=== PATIENT | female | born 1990 | race Caucasian/White ===

== ENCOUNTER 2024-07-26 15:03 | Outpatient (AMB) | payer BC, SELFPAY ==
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
[2024-07-26 15:49] VITALS: BP 116/78; PULSE 98; RESP 16; TEMP 36.8; O2SAT 97; BMI 49.9
--- OUTSIDE RECORDS SUMMARY | 2024-07-26 19:06 | XMS_ITS | Encounter Summary ---
Author Organization [facility] Address [address] [place] [address] Care Team Providers Care Heavy Machinery Assembler Name Role Phone Deb Patterson Primary Care Provider Encounter Details Date Type Department Care Team (Late st Contact Info) Description 06/17/2023 Telephone [facility] Patient Access [facility] [address] [place] [id number] Telephone Intake, Staff Social History Tobacco Use Types Packs/Day Years Used Date Smoking Tobacco: Former Cigarettes Smokeless Tobacco: Never Alcohol Use Standard Drinks/Week Comments Yes 0 (1 standard drink = 0.6 oz pur e alcohol) rare Comments Unknown Sex and Gender Information Value Date Recorded Sex Assigned at Female 12/27/2022 2:12 PM EDT Legal Sex Female 4:10 PM EDT Gender Identity Female 12/27/2022 2:12 PM EDT Sexual Orientation Lesbian or Capps 12/27/2022 2: 12 PM EDT documented as of this encounter Miscellaneous Notes * Telephone Encounter - Hoang Lucas - 06/17/2023 1:40 PM EST PT of Dr Ashley vegas from Dr Clemencia Sifuentes's office, the PT's Floor And Wall Applier Liquid. Dr Clemencia Sifuentes wanted to leave her number for Dr Ramirez. Clemencia Sifuentse would like to discuss the patient. Person cell phone number [phone] Thank you -Pac documented in this encounter Plan of Treatment Upcoming Encounters Date Type Department Care Team (Late st Contact Info) Description 08/09/2024 4:00 PM EDT Follow-Up [facility] Rheumatology Clinic [address] [place] [address] High Lead Yarder: Tru Maloney MD [address] [place] [address] 08/10/2024 2:15 PM EDT Infusion [facility] Infusion Clinic [address] [place] [address] Tru Ramirez MD [address] [place] [address] 09/07/2024 2:30 PM EDT Infusion [facility] Infusion [address] [address] Tru Ramirez MD [address] [place] [address] 11/15/2024 2:20 PM EDT Follow-Up [facility] Rheumatology Clinic [address] [place] [address] High Lead Yarder: Tru Maloney MD [address] [place] [address] documented as of this encounter Visit Diagnoses Not on filedocumented in this encounter Care Teams Heavy Machinery Assembler Relationship Specialty Start Date End Date Deb Patterson [facility] [place] [address] PCP - General Family Medicine 10/01/22 documented as of this encounter
--- OUTSIDE RECORDS SUMMARY | 2024-07-26 19:06 | XMS_ITS | Encounter Summary ---
Author Organization [facility] Address [address] [place] [address] Care Team Providers Care Self Pay Collector Name Role Phone Deb Patterson Primary Care Provider [phone] Encounter Details Date Type Department Care Team (Late st Contact Info) Description 06/15/2024 Orders Only [facility] [address] [place] [address] Yessenia Jaquez, PhilomenaD Social History Tobacco Use Types Packs/Day Years Used Date Smoking Tobacco: Former Cigarettes Passive Smoke Exposure: Past Smokeless Tobacco: Never Alcohol Use Standard Drinks/Week Comments Not Currently 0 (1 standard drink = 0.6 oz pur e alcohol) rare Comments Unknown Sex and Gender Information Value Date Recorded Sex Assigned at Female 12/27/2022 2:12 PM EDT Legal Sex Female 4:10 PM EDT Gender Identity Female 12/27/2022 2:12 PM EDT Sexual Orientation Lesbian or Capps 12/27/2022 2: 12 PM EDT documented as of this encounter Plan of Treatment Upcoming Encounters Date Type Department Care Team (Late st Contact Info) Description 08/09/2024 4:00 PM EDT Follow-Up [facility] Rheumatology Clinic [address] [place] [phone] Brush Maker Machine: Tru Maloney MD [address] [place] [phone] 08/10/2024 2:15 PM EDT Infusion [facility] Infusion Clinic [address] [place] [address] Tru Ramirez MD [address] [place] [address] 09/07/2024 2:30 PM EDT Infusion [facility] Infusion Clinic [address] [place] [address] Tru Ramirez MD [address] [place] [address] 11/15/2024 2:20 PM EDT Follow-Up [facility] Rheumatology Clinic [address] [place] [phone] Brush Maker Machine: Tru Maloney MD [address] [place] [address] documented as of this encounter Visit Diagnoses Not on filedocumented in this encounter Care Teams Self Pay Collector Relationship Specialty Start Date End Date Deb Patterson [address] [place] [address] PCP - General Family Medicine 10/01/22 documented as of this encounter
--- OUTSIDE RECORDS SUMMARY | 2024-07-26 19:06 | XMS_ITS | Encounter Summary ---
Author Organization [facility] Address [address] [place] [address] Care Team Providers Care Black And White Printer Operator Name Role Phone Deb Patterson Primary Care Provider [phone] Reason for Visit * Episode Based Medications (Routine) - Authorized Specialty Diagnoses / Procedures Referred By Billie t Referred To Contact Diagnoses Iridocyclitis Psoriasis Psoriatic arthritis (HCC) Tru Ramirez MD [address] [place] [address] Phone: tel: fax: [facility] Infusion [facility] [address] [place] [address] Phone: tel: Referral ID Status Reason Start Date Expiration Date V isits Requested Visits Authorized [id number] Authorized 12/16/2023 01/02/2025 6 6 Encounter Details Date Type Department Care Team (Late st Contact Info) Description 07/13/2024 2:15 PM EST Infusion [facility] Infusion [facility] [address] [place] [address] Tru Ramirez MD [address] [place], [place] [id number] Iman Duran RN Psoriatic arthritis (HCC) (Primary Dx); Iridocyclitis; Psoriasis Social History Tobacco Use Types Packs/Day Years [...] PM EDT documented as of this encounter Last Filed Vital Signs Vital Sign Reading Time Taken Comments Blood Pressure 131/84 07/13/2024 2:20 PM EST Pulse 74 07/13/2024 2:20 PM EST Temperature 36.8 ??C (98.2 ??F) 07/13/2024 2:20 PM ES T Respiratory Rate 20 07/13/2024 2:20 PM EST Oxygen Saturation 98% 07/13/2024 2:20 PM EST Inhaled Oxygen Concentration - - Weight 138.8 kg (306 lb) 07/13/2024 2:20 PM EST Height - - Body Mass Index 49.39 05/11/2024 4:14 PM EST documented in this encounter Nursing Notes * Iman Duran RN - 07/13/2024 2:15 PM EST Patient ambulatory to infusion room for Rapid Infliximab infusion. Patient denies any fevers, infections, or antibiotic use in the last 7 days. PIV placed in Righthand at patient request. Patient denies pain or discomfort with flush. Premedicated as ordered. Infliximab infused per therapy plan. Pt tolerated infusion well. PIV flushed and removed intact. AVS declined patient states she uses my chart. Patient discharged ambulatory in stable condition. documented in this encounter Plan of Treatment Upcoming Encounters Date Type Department Care Team (Late st Contact Info) Description 08/09/2024 4:00 PM EDT Follow-Up [facility] Rheumatology Clinic [address] [place] [address] Stationary Engineer Apprentice: Tru Maloney MD [address] [place] [address] 08/10/2024 2:15 PM EDT Infusion [facility] Infusion Clinic [address] [place] [address] Tru Ramirez MD [address] [place] [address] 09/07/2024 2:30 PM EDT Infusion [facility] Infusion Clinic [address] [place] [address] Tru Ramirez MD [address] [place] [address] 11/15/2024 2:20 PM EDT Follow-Up [facility] Rheumatology Clinic [address] [place] [address] Stationary Engineer Apprentice: Tru Maloney MD [address] [place] [address] documented as of this encounter Visit Diagnoses Diagnosis Psoriatic arthritis (HCC)- Primary Psoriatic arthropathy Iridocyclitis Unspecified iridocyclitis Psoriasis Other psoriasis documented in this encounter Administered Medications Inactive Administered Medications - up to 3 most recent administrations Medication Order MAR Action Action Date Dose Rate Site acetaminophen (TYLENOL) tablet 650 mg 650 mg, oral, Once, On Thu07/13/24 at 1430, 1 dose, Administer 30 minutes prior to inFLIXimab. Week 6Indications:Iridocyclitis, Psoriasis,Psoriatic arthritis (HCC) Given 07/13/2024 3:12 PM EST 650 mg diphenhydrAMINE (BENADRYL) injection 25 mg 25 mg, intravenous, Once, On Thu07/13/24 at 1430, 1 dose, Administer 30 minutes prior to inFLIXimab infusion Week 6Indications:Iridocyclitis, Psoriasis,Psoriatic arthritis (HCC) Given 07/13/2024 3:17 PM EST 25 mg hydrocortisone sodium succinate (Solu-CORTEF) injection 200 mg 200 mg, intravenous, Once, On Thu07/13/24 at 1430, 1 dose, Administer 30 minutes prior to inFLIXimabIndications:Irido cyclitis,Psoriasis,Psoriati c arthritis (HCC) Given 07/13/2024 3:14 PM EST 200 mg inFLIXimab-dyyb (INFLECTRA) 1,390 mg in 0.9% NaCl 500 mL IVPB (No Charge) 1,390 mg (rounded from 1,388 mg = 10 mg/kg ? 138.8 kg), intravenous, Once, On Thu07/13/24 at 1515, 1 dose, If inFLIXimab (or biosimilar) infusion reaction occurs, please stop infusion, administer anaphylaxis medications per orders if needed and contact ordering provider for administration instructions. See InFLIXimab admin chart. Loading doses (weeks 0, 2, and 6) and 1st maintenance dose to be admin at standard rate. If first 4 doses tolerated, future doses admin at rapid rate. If greater than 6 months have elapsed between doses OR patient intolerant of rapid rate OR patient needs to be loaded again please refer to admin chart for guidance. Use 1.2 micron or smaller filter.Indications:Iridocyc litis,Psoriasis,Psoriatic arthritis (HCC) New Bag/Syringe 07/13/2024 3:31 PM EST 1,390 mg 500 mL/hr sodium chloride 0.9% (NS) premix infusion 250 mL, intravenous, at 20 mL/hr, Once, On Thu07/13/24 at 1430, 1 doseIndications:Iridocyclit is,Psoriasis,Psoriatic arthritis (HCC) New Bag/Syringe 07/13/2024 3:15 PM EST 250 mL 20 mL/hr documented in this encounter Care Teams Black And White Printer Operator Relationship Specialty Start Date End Date Deb Patterson [address] [place] [address] PCP - General Family Medicine 10/01/22 documented as of this encounter
--- OUTSIDE RECORDS SUMMARY | 2024-07-26 19:06 | XMS_ITS | Referral Summary ---
Author Organization [facility] Address [address] [place] [address] Care Team Providers Care Special Needs Tutor Name Role Phone Deb Patterson Primary Care Provider [phone] Encounters Date Type Department Care Team Description 07/13/2024 2:15 PM EST Infusion [facility] [address] [place] [id number] Tru Ramirez MD Overstreet, Belinda, RN Psoriatic arthritis (HCC) (Primary Dx); Iridocyclitis; Psoriasis 06/15/2024 Orders Only [facility] [address] [place] [phone] Yessenia Jaquez, PhilomenaD 06/15/2024 3:15 PM EST Infusion [facility] [address] [place] [address] [phone] Tru Ramirez MD Hallihan, Jillian, RN Psoriatic arthritis (HCC) (Primary Dx); Iridocyclitis; Psoriasis 05/17/2024 Orders Only [facility] [address] [place] [phone] [employer]ental [employer] Manager: Tru Maloney MD Psoriatic arthritis (HCC) 05/12/2024 myChart Message [facility] [address] [place] [phone] Car Rental Agency Manager: Tru Maloney MD Your lab test results 05/11/2024 Refill [facility] [address] [place] [address] [place] [phone] [employer] Rental Agency Manager: Tru Maloney MD Psoriatic arthritis (HCC) 05/11/2024 4:20 PM EST Follow-Up [facility] [address] [place] [address] Car Rental Agency Manager: Tru Maloney MD Psoriatic arthritis (HCC) (Primary Dx); Psoriasis; High risk medication use 05/06/2024 8:00 AM EST Infusion [facility] [address] [place] [phone] Tru Ramirez MD Overstreet, Belinda, RN Psoriatic arthritis (HCC) (Primary Dx); Iridocyclitis; Psoriasis from Last 3 Months Allergies Active Allergy Reactions Criticality Noted Date Comments Escitalopram Unknown 07/24/2020 Levofloxacin Hallucinations,Unkno wn Medium 08/09/2016 hallucinations Hallucinations Sulfa (Sulfonamide Antibiotics) Hives 08/09/2016 Medications albuterol (PROAIR HFA,VENTOLIN HFA) 90 mcg inhaler Inhale 2 puffs by mouth every 4 hours as needed for wheezing. Active cetirizine (ZyrTEC) 10 mg tablet Take 10 mg by mouth once a day. Active meclizine (ANTIVERT) 25 mg tablet Take 25 mg by mouth 3 times a day as needed for dizziness. Active triamcinolone acetonide (KENALOG) 0.1% cream Apply 1 application. topically to the affected area 2 times a day. 3 Active triamcinolone acetonide (KENALOG) 0.1% ointment Apply 1 application. topically to the affected area 2 times a day. 3 Active fluticasone propion-salmet Naima (Wixela Inhub) 100-50 mcg inhaler Inhale 1 puff by mouth 2 times daily. 3 Active BD Insulin Syringe Ultra-Fine 1 mL 31 gauge x 5/16 1 EACH BY MISCELLANEOUS ROUTE ONE TIME PER WEEK 4 Active cyclobenzaprin e (FLEXERIL) 10 mg tablet Take 10 mg by mouth 3 times a day. 4 Active inFLIXimab-dyy b (Inflectra) 100 mg injectionIndic ations:Psoriat ic arthritis (HCC) Infuse 135 mL (1350 mg total) intravenously every 30 days for 5 doses. 140 mL 4 07/12/2024 9:10 AM EST 4 08/16/19 25 Active leucovorin 10 mg tabletIndicati ons:Psoriatic arthritis (HCC) Take 1 tablet (10 mg total) by mouth per week. Take with a full glass of water about 12 hours after methotrexate dose 13 tablet 3 4 05/11/20 25 Active syringe with needle 1 mL 25 gauge x 5/8 syringeIndicat ions:Psoriatic arthritis (HCC) For use with methotrexate injection 13 each 3 4 Active folic acid (FOLVITE) 1 mg tabletIndicati ons:Psoriatic arthritis (HCC) Take 1 tablet (1 mg total) by mouth once a day. 90 tablet 3 4 05/11/20 25 Active methotrexate 25 mg/mL injectionIndic ations:Psoriat ic arthritis (HCC) Inject 1 mL (25 mg total) under the skin per week. 26 mL 4 11/16/19 25 Active Active Problems Problem Noted Date Diagnosed Date Iridocyclitis 09/02/2023 Microcytic anemia 03/11/2023 Assessment & Plan (06/03/2023 4:42 PM EST): Ms. Frederick has a microcytic anemia. Laboratory studies will be performed today to assess her serum iron, TIBC, and serum ferritin. Assessment & Plan (03/11/2023 5:59 PM EDT): Ms. Frederick has a microcytic anemia. Laboratory studies will be performed today to assess her serum iron, TIBC, and serum ferritin. High risk medication use 03/11/2023 Anxiety 12/30/2022 Asthma 12/30/2022 Class 3 severe obesity due t o excess calories without serious comorbidity with body mass index (BMI) of 40.0 to 44.9 in adult 12/30/2022 Abnormal Pap smear of cervix 10/10/2021 Overview (12/30/2022): 09/2021 Pap ASC-H Needs colpo 11/2021 Colpo Bx: neg / ECC: neg Co testing one year Arachnoid cyst of posterior cranial fossa 2021 Overview (12/30/2022): MRI brain on 08/27/2021: a stable posterior fossa arachnoid cyst measuring 3 x 1.0 cm, compared to 2014. Depression 08/24/2019 Psoriatic arthritis 11/26/2016 Overview (12/30/2022): [facility] Rheumatology: 10.02.19- She is on Cosentyx 300 mg every 4 weeks with overall improvement. Her symptoms have not completely resolved. She endorses pain in her hands and lower back. On exam she has tenderness of the left first second and third MCPs with slight swelling. Her skin has improved except for psoriatic lesions under her breasts. She felt better on Humira but it caused a skin reaction. Could consider switching to Taltz, Tremfya, or Enbrel. For now she would like to continue with Cosentyx. Continue Cosentyx 300 mg every 4 weeks. She may take ibuprofen as needed. She will let me know if she has worsening symptoms. RTC in three months. Assessment & Plan (05/11/2024 4:44 PM EST): Ms. Frederick has psoriasis, psoriatic arthritis, and uveitis. Her psoriasis and psoriatic arthritis remained very active despite adalimumab 40 mg taken subcutaneously every other week. She previously responded inadequately to adalimumab, etanercept, certolizumab pegol, apremilast, secukinumab, and ustekinumab. Her psoriasis and joint inflammation resolved on upadacitinib 15 mg taken by mouth daily since mid December 2022. However, after tapering off of prednisone, she experienced swelling and tenderness of both knees and ankles and swelling of both wrists. On infliximab 10 mg/kg intravenously every 4 weeks, her skin and joint inflammation and iridocyclitis are controlled. I suggested that she continue receiving infliximab 10 mg/kg intravenously every 4 weeks and that she resume taking methotrexate 25 mg subcutaneously weekly, folic acid 1 mg by mouth daily, and leucovorin 10 mg by mouth weekly about 12 hours after her methotrexate dose. She will continue taking her other medications at their present doses. Laboratory studies will be performed today and in 3 months and 6 months to monitor her complete blood count, WBC differential count, serum creatinine, liver function studies, ESR, and CRP. Ms. Frederick will return to see me in about 3 months so that I may assess her response to this change in treatment, review the results of laboratory testing with her, and make any necessary changes in therapy. She will return sooner, if the need arises. Assessment & Plan (12/16/2023 4:33 PM EDT): Ms. Frederick has psoriasis, psoriatic arthritis, and uveitis. Her psoriasis and psoriatic arthritis remained very active despite adalimumab 40 mg taken subcutaneously every other week. She previously responded inadequately to adalimumab, etanercept, certolizumab pegol, apremilast, secukinumab, and ustekinumab. Her psoriasis and joint inflammation resolved on upadacitinib 15 mg taken by mouth daily since mid December 2022. However, after tapering off of prednisone, she experienced swelling and tenderness of both knees and ankles and swelling of both wrists. On upadacitinib 30 mg taken by mouth daily, methotrexate 25 mg taken subcutaneously weekly, and prednisone 40 mg taken by mouth daily, her skin and joint inflammation are well-controlled. However, she continues to have significant activity of her iridocyclitis. I suggested that she continue taking methotrexate 25 mg subcutaneously weekly and prednisone 40 mg by mouth daily. I have ordered for her to receive infliximab 10 mg/kg intravenously at weeks 0, 2, and 6 and then every 4 weeks thereafter. She will continue taking upadacitinib 30 mg by mouth daily until 5 days before her first infliximab infusion and then she will stop taking upadacitinib. She will continue taking leucovorin 10 mg by mouth weekly about 12 hours after methotrexate dose, folic acid 1 mg by mouth daily, and her other medications at the present doses. I informed her that infliximab, like other TNF inhibitors, may increase the severity of bacterial infections, increase her susceptibility to opportunistic infections, such as reactivation tuberculosis, increase the risk of nonmelanoma skin cancer, have psoriasis as a potential complication, rarely cause congestive heart failure, autoimmune reactions such as drug-induced lupus, low blood counts, and infusion reactions. She understands and accepts these potential risks, given the potential benefit of infliximab therapy. Laboratory studies will be performed today and in 3 months and 6 months to monitor her complete blood count, WBC differential count, serum creatinine, liver function studies, and serum lipid studies. She had hepatitis B serologic testing and QuantiFERON-TB gold testing performed in December 2022. She will have PA and lateral chest radiographs performed today in anticipation of beginning infliximab therapy. Ms. Frederick will return to see me in about 3 months so that I may assess her response to this change in treatment, review the results of laboratory and radiographic testing with her, and make any necessary changes in therapy. She will return sooner, if the need arises. Assessment & Plan (09/04/2023 11:24 AM EDT): Ms. Frederick has psoriasis, psoriatic arthritis, and uveitis. Her psoriasis and psoriatic arthritis remained very active despite adalimumab 40 mg taken subcutaneously every other week. She previously responded inadequately to adalimumab, etanercept, certolizumab pegol, apremilast, secukinumab, and ustekinumab. Her psoriasis and joint inflammation resolved on upadacitinib 15 mg taken in by mouth daily since mid December 2022. However, after tapering off of prednisone, she experiences swelling and tenderness of both knees and ankles and swelling of both wrists. She will increase her methotrexate dose from 17.5 mg to 22.5 mg taken subcutaneously weekly and she will continue taking upadacitinib 15 mg by mouth daily, leucovorin 10 mg by mouth weekly about 12 hours after methotrexate dose, folic acid 1 mg by mouth daily, and her other medications at the present doses. Laboratory studies will be performed today and in 3 months and 6 months to monitor her complete blood count, WBC differential count, serum creatinine, liver function studies, and serum lipid studies. Ms. Frederick will return to see me in about 3 months so that I may assess her response to this change in treatment, review the results of laboratory testing with her, and make any necessary changes in therapy. She will return sooner, if the need arises. Assessment & Plan (06/03/2023 4:41 PM EST): Ms. Frederick has psoriasis, psoriatic arthritis, and uveitis. Her psoriasis and psoriatic arthritis remained very active despite adalimumab 40 mg taken subcutaneously every other week. She previously responded inadequately to adalimumab, etanercept, certolizumab pegol, apremilast, secukinumab, and ustekinumab. Her psoriasis and joint inflammation have resolved on upadacitinib 15 mg taken in by mouth daily since and mid December 2022. She will continue taking upadacitinib 15 mg by mouth daily and her other medications at the present doses. Laboratory studies will be performed today and in 3 months and 6 months to monitor her complete blood count, WBC differential count, serum creatinine, liver function studies, and serum lipid studies. Ms. Frederick will return to see me in about 3 months so that I may assess her response to continued treatment, review the results of laboratory testing with her, and make any necessary changes in therapy. She will return sooner, if the need arises. Assessment & Plan (03/11/2023 5:58 PM EDT): Ms. Frederick has psoriasis, psoriatic arthritis, and uveitis. Her psoriasis and psoriatic arthritis remained very active despite adalimumab 40 mg taken subcutaneously every other week. She previously has responded inadequately to adalimumab, etanercept, certolizumab pegol, apremilast, secukinumab, and ustekinumab. Her psoriasis and joint inflammation have improved since she began taking upadacitinib 15 mg by mouth daily in December 2022. She will continue taking upadacitinib 15 mg by mouth daily, aspirin 500 mg by mouth 3 times daily, and her other medications at the present doses. Laboratory studies will be performed today and in 3 months and 6 months to monitor her complete blood count, WBC differential count, serum creatinine, liver function studies, and serum lipid studies. Ms. Frederick will return to see me in about 3 months so that I may assess her response to continued treatment, review the results of laboratory testing with her, and make any necessary changes in therapy. She will return sooner, if the need arises. Assessment & Plan (12/30/2022 3:52 PM EDT): Ms. Frederick has psoriasis, psoriatic arthritis, and uveitis. Her psoriasis and psoriatic arthritis remain very active despite adalimumab 40 mg taken subcutaneously every other week. She previously has responded inadequately to adalimumab, etanercept, certolizumab pegol, apremilast, secukinumab, and ustekinumab. She has not been treated with a CLAUDIO inhibitor. This different mechanism of action might lead to better control of her joint inflammation and possibly her psoriasis. If ineffective, consideration could be given to a trial of deucravacitinib, which is a TYK2 inhibitor that is FDA-approved for treatment of psoriasis but not yet approved in psoriatic arthritis. I suggested that she stop taking adalimumab and instead begin taking upadacitinib 15 mg by mouth daily. I told her that the FDA has issued a box warning for all CLAUDIO inhibitors indicating a possible increased risk of major adverse cardiovascular events and malignancies. However, this is based upon the results of a clinical trial that compared tofacitinib to adalimumab or etanercept in rheumatoid arthritis patients age 50 or older with at least 1 cardiovascular risk factor. The results of this clinical trial are not necessarily extrapolatable to individuals younger than age 50 without cardiovascular risk factors and without rheumatoid arthritis. I told her that upadacitinib is a more selective JAK1 inhibitor than tofacitinib. Potential risks include, but are not limited to, low blood counts, abnormal liver function, elevated serum lipids, increased risk of infection, and increased risk of herpes zoster. The potential benefit might be better control of her joint and possibly skin disease. We will seek prior authorization for upadacitinib 15 mg taken by mouth daily from her insurance provider. Once she receives authorization for this medication, she may begin taking upadacitinib immediately after stopping adalimumab. Laboratory studies should be monitored no less infrequently than every 3 months while on abatacept and to monitor her complete blood count, WBC differential count, serum creatinine, liver function studies, and serum lipid studies. Laboratory studies will be performed today to assess her complete blood count, white blood cell differential count, serum electrolytes, random blood glucose, BUN, serum creatinine, serum calcium, liver function studies, serum lipid studies, ESR, CRP, circulating antinuclear antibodies, circulating rheumatoid factor, circulating IgG anti-CCP antibodies, hepatitis B surface antigen, anti-hepatitis B surface antibodies, anti-hepatitis B core antibodies, antibodies to hepatitis C virus, and QuantiFERON-TB Gold test. She will have plain radiographs of her hands, wrists, and feet performed to look for evidence of bony erosion, periostitis, periarticular osteopenia, or other stigmata that might indicate chronicity of her psoriatic arthritis. Ms. Chand will return to see me in about 2 months so that I may assess her response to this change in treatment, review results of laboratory testing with her, and make any necessary changes in therapy. She will return sooner, if the need arises. Dysmenorrhea 09/18/2010 Psoriasis 01/22/2009 Overview (12/30/2022): Taking Cosentyx for psoriasis since March 2019. Assessment & Plan (05/11/2024 4:43 PM EST): Her psoriasis is controlled on infliximab 10 mg/kg intravenously every 4 weeks. Assessment & Plan (12/16/2023 4:33 PM EDT): Her psoriasis is controlled on upadacitinib 30 mg taken by mouth daily, methotrexate 25 mg subcutaneously weekly, and prednisone 40 mg taken by mouth daily.. Assessment & Plan (09/02/2023 5:07 PM EDT): Her psoriasis is controlled on upadacitinib 15 mg taken by mouth daily. Immunizations Immunization Administration Dates Next Due [id number] 07/05/1993, 3,1992,06/04 Diphtheria, Tetanus Toxoids and Acellular Pertussis Vaccine 03/28/1997 Diphtheria, Tetanus Toxoids and Pertussis Vaccine 10/07/1993,1992,1992,06/04 Hepatitis B Vaccine, Pediatr ic or Pediatric/Adolescent Dosage 1992,1992,1992 Human Papillomavirus 9-Valent Vaccine 12/08/2017 ,10/20/2017 Influenza, Injectable, Quadr ivalent, Preservative Free 02/25/2021,03/05/2020 Influenza, Unspecified 02/21/2014,2009,05/12/2007,04/04,04/22/2005,02/24/2004 Measles, Mumps, and Rubella Vaccine 04/14/1996,0 07/05/1993 Meningococcal Polysaccharide (Groups A, C, Y and W-135) Diphtheria Toxoid Conjugate Vaccine (MCV4P) 01/22/2009 Tetanus Toxoid, Reduced Diph theria Toxoid, and Acellular Pertussis Vaccine, Adsorbed 03/05/2020,01/22/2009 Tetanus and Diphtheria Toxoi ds, Not Adsorbed, for Adult Use 09/26/2003 Trivalent Poliovirus Vaccine , Live, Oral 03/28/1997,10/07/1993,1992,06/04 Tuberculin Skin Test; Purifi ed Protein Derivative Solution, Intradermal 08/08/2014 Varicella Virus Vaccine 02/20/2010,04/14/1996 Social History Tobacco Use Types Packs/Day Years Used Date Smoking Tobacco: Former Cigarettes Passive Smoke Exposure: Past Smokeless Tobacco: Never Tobacco Cessation:Counseling Given: Not Answered Alcohol Use Standard Drinks/Week Comments Not Currently 0 (1 standard drink = 0.6 oz pur e alcohol) rare Comments Unknown Sex and Gender Information Value Date Recorded Sex Assigned at Female 12/27/2022 2:12 PM EDT Legal Sex Female 4:10 PM EDT Gender Identity Female 12/27/2022 2:12 PM EDT Sexual Orientation Lesbian or Capps 12/27/2022 2: 12 PM EDT Last Filed Vital Signs Vital Sign Reading Time Taken Comments Blood Pressure 131/84 07/13/2024 2:20 PM EST Pulse 74 07/13/2024 2:20 PM EST Temperature 36.8 ??C (98.2 ??F) 07/13/2024 2:20 PM ES T Respiratory Rate 20 07/13/2024 2:20 PM EST Oxygen Saturation 98% 07/13/2024 2:20 PM EST Inhaled Oxygen Concentration - - Weight 138.8 kg (306 lb) 07/13/2024 2:20 PM EST Height 167.6 cm (5' 6 ) 05/11/2024 4:14 PM EST Body Mass Index 49.39 05/11/2024 4:14 PM EST Plan of Treatment Upcoming Encounters Date Type Department Care Team (Late st Contact Info) Description 08/09/2024 4:00 PM EDT Follow-Up [facility] [address] [place] [phone] Car Rental Agency Manager: Tru Maloney MD [address] [place] [phone] 08/10/2024 2:15 PM EDT Infusion [facility] [address] [place] [phone] Tru Ramirez MD [address] [place] [phone] 09/07/2024 2:30 PM EDT Infusion [facility] [address] [place] [phone] Tru Ramirez MD [address] [place] [phone] 11/15/2024 2:20 PM EDT Follow-Up [facility] [address] [place] [phone] Car Rental Agency Manager: Tru Maloney MD [address] [place] [phone] Procedures * Due to [place] state law, this organization might not be sharing negative HIV tests. Procedure Name Priority Date/Time Associated Diagnosis Comments CBC Routine 05/11/2024 4:59 PM EST Psoriatic arthritis (HCC) C-REACTIVE PROTEIN Routine 05/11/2024 4: 59 PM EST Psoriatic arthritis (HCC) CREATININE Routine 05/11/2024 4:59 PM EST Psoriatic arthritis (HCC) HEPATIC FUNCTION PANEL Routine 4:59 PM EST Psoriatic arthritis (HCC) SEDIMENTATION RATE, AUTOMATED Routine 05/11/2024 4:59 PM EST Psoriatic arthritis (HCC) HEPATITIS C ANTIBODY W/REFLEX TO HCV RNA, QUANTITATIVE PCR Routine 12/30/2022 4:53 PM EDT Psoriatic arthritis (HCC) from Last 3 Months or Most Recently Relevant to Health Maintenance Results * Due to [place] state law, this organization might not be sharing negative HIV tests. * (ABNORMAL) Sedimentation Rate (05/11/2024 4:59 PM EST) Sed Rate 31(H) <20 mm/Hr mm/Hr 05/11/2024 6:12 PM EST [facility] Blood Structure of peripheral vein / Unknown Venipuncture / Unknown 05/11/2024 4:59 PM EST 05/11/2024 5:53 PM EST us Tru Ramirez MD LAB BLOOD ORDERABLES Final Resul t [facility] [address] [place] [address], * (ABNORMAL) CBC (05/11/2024 4:59 PM EST) WBC 13.3(H) 3.8 - 10.8 10*3/uL 05/11/2024 6:09 PM EST [facility] RBC 4.72 3.80 - 5.10 10*6/uL 05/11/2024 6:09 PM EST [facility] Hemoglobin 11.9 11.7 - 15.5 g/dL 05/11/2024 6:09 PM EST [facility] Hematocrit 38.6 35.0 - 45.0 % 05/11/2024 6:09 PM EST [facility] MCV 81.8 80.0 - 100.0 fL 05/11/2024 6:09 PM EST [facility] MCH 25.2(L) 27.0 - 33.0 pg 05/11/2024 6:09 PM EST [facility] MCHC 30.8(L) 32.0 - 36.0 g/dL 05/11/2024 6:09 PM EST [facility] RDW 12.9 11.0 - 15.0 % 05/11/2024 6:09 PM EST [facility] Platelets 450(H) 140 - 400 10*3/uL 05/11/2024 6:09 PM EST [facility] MPV 9.8 7.5 - 12.5 fL 05/11/2024 6:09 PM EST [facility] Blood Structure of peripheral vein / Unknown Venipuncture / Unknown 05/11/2024 4:59 PM EST 05/11/2024 5:53 PM EST Tru Ramirez MD LAB BLOOD ORDERABLES Final Resul t Performing Organization Address City/[facility] Co de Phone Number [facility] [address] [place] [phone], [place] * (ABNORMAL) C-Reactive Protein (05/11/2024 4:59 PM EST) C Reactive Protein 10.9(H) <=9.9 mg/L 05/11/2024 6:26 PM EST [facility] Blood Structure of peripheral vein / Unknown Venipuncture / Unknown 05/11/2024 4:59 PM EST 05/11/2024 5:53 PM EST Tru Ramirez MD LAB BLOOD ORDERABLES Final Resul t Performing Organization Address City/[facility]/ZIP Co de Phone Number [facility] [address] [place] [address], [place] * Creatinine (05/11/2024 4:59 PM EST) Creatinine 0.81 0.50 - 1.20 mg/dL 05/11/2024 6:26 PM EST [facility] eGFR >90 >=60 mL/min/1. 73m2 05/11/2024 6:26 PM EST [facility] Comment:The estimated glomer ular filtration rate (eGFR) is calculated using a new formula developed by the NKF-ASN task force to eliminate race-based correction factors. The new formula uses serum/plasma creatinine, age, and gender to determine eGFR. A value below 60mls/min might indicate kidney disease and will be flagged. For additional information, see Jonh et al, Am J Kidney Dis. 2021;79(2):268- 288, A Unifying Approach for GFR estimation: Recommendations of the NKF-ASN Task Force on Reassessing the Inclusion of Race in Diagnosing Kidney Disease . Blood Structure of peripheral vein / Unknown Venipuncture / Unknown 05/11/2024 4:59 PM EST 05/11/2024 5:53 PM EST us Tru Ramirez MD LAB BLOOD ORDERABLES Final Resul t [facility] [facility] [address] [place] [address], * (ABNORMAL) Hepatic Function Panel (05/11/2024 4:59 PM EST) Total Protein 7.6 6.0 - 8.0 g/dL 05/11/2024 6:29 PM EST [facility] Albumin 4.3 3.5 - 5.2 g/dL 05/11/2024 6:29 PM EST [facility] Globulin, Total 3.3 2.1 - 4.2 g/dL 05/11/2024 6:29 PM EST [facility] Bilirubin, Total 0.2 0.2 - 1.2 mg/dL 05/11/2024 6:29 PM EST [facility] Bilirubin, Direct <0.1 <=0.4 mg/dL 05/11/2024 6:29 PM EST [facility] Alkaline Phosphatase 130(H) 35 - 129 U/L 05/11/2024 6:29 PM EST [facility] AST 46(H) 10 - 40 U/L 05/11/2024 6:29 PM EST [facility] ALT 45(H) 10 - 40 U/L 05/11/2024 6:29 PM EST [facility] Bilirubin, Indirect 05/11/2024 6:29 PM EST [facility] Comment:Unable to calculate A/G Ratio 1.3(L) 1.5 - 3.0 05/11/2024 6:29 PM EST [facility] Blood Structure of peripheral vein / Unknown Venipuncture / Unknown 05/11/2024 4:59 PM EST 05/11/2024 5:53 PM EST us Tru Ramirez MD LAB BLOOD ORDERABLES Final Resul t [facility] [address] [place] [address], * Hepatitis C Antibody w/Reflex to HCV RNA, Quantitative PCR (12/30/2022 4:53 PM EDT) Hepatitis C Antibody NON-REACT TATO NON-REACT TATO 12/31/2022 6:56 AM EDT [facility] Comment: HCV antibody was non-reactive. There is no laboratory evidence of HCV infection. In most cases, no further action is required. However, if recent HCV exposure is suspected, a test for HCV RNA (test code 51083) is suggested. For additional information please refer to http://education.Inaaya/faq/XSM02r0 (This link is being provided for informational/ educational purposes only.) Blood Structure of peripheral vein / Unknown Venipuncture / Unknown 12/30/2022 4:53 PM EDT 12/30/2022 6:09 PM EDT Narrative [facility] - 12/31/2022 6:56 AM EDT [facility] Received Date: us Tru Ramirez MD LAB BLOOD ORDERABLES Final Resul t [facility] [address], [place] [address], [place] [phone] [facility] [address], [place] [address], [place] [phone] from Last 3 Months or Most Recently Relevant to Health Maintenance Insurance [facility] PPO/EPO Care Teams Special Needs Tutor Relationship Specialty Start Date End Date Deb Patterson [address] [place] [address] PCP - General Family Medicine 10/01/22
--- OUTSIDE RECORDS SUMMARY | 2024-07-26 19:06 | XMS_ITS | Clinical Summary ---
Author Organization [facility] Address [address] [place] [address] Care Team Providers Care Broiler Manager Name Role Phone Deb Patterson Primary Care Provider [phone] Allergies Active Allergy Reactions Criticality Noted Date [...] measuring 3 x 1.0 cm, compared to 2015. Depression 08/24/2019 Psoriatic arthritis 11/26/2016 Overview (12/30/2022): [facility] Rheumatology: 5.10.20- She is on Cosentyx 300 mg every [...] upadacitinib 15 mg by mouth daily in mid December 2022. She will continue taking [...] upadacitinib 15 mg taken by mouth daily. Encounters Date Type Department Care Team Description 07/13/2024 2:15 PM EST Infusion [facility] [address] [place] [phone] Tru Ramirez MD Overstreet, Belinda, RN Psoriatic arthritis (HCC) (Primary Dx); Iridocyclitis; Psoriasis 06/15/2024 3:15 PM EST Infusion [facility] [address] [place] [address] Tru Ramirez MD Hallihan, Jillian, RN Psoriatic arthritis (HCC) (Primary Dx); Iridocyclitis; Psoriasis 06/15/2024 Orders Only [facility] [address] [place] [id number] Yessenia Jaquez, PharmD 05/17/2024 Orders Only [facility] [address] [place] [phone] Paper Mill Manager: Tru Maloney MD Psoriatic arthritis (HCC) 05/12/2024 myChart Message [facility] [address] [place] [phone] Paper Mill Manager: Tru Maloney MD Your lab test results 05/11/2024 4:20 PM EST Follow-Up [facility] [address] [place] [phone] Paper Mill Manager: Tru Maloney MD Psoriatic arthritis (HCC) (Primary Dx); Psoriasis; High risk medication use 05/11/2024 Refill [facility] [address] [place] [phone] Paper Mill Manager: Tru Maloney MD Psoriatic arthritis (HCC) 05/06/2024 8:00 AM EST Infusion [facility] [address] [place] [id number] Tru Ramirez MD Overstreet, Belinda, RN Psoriatic arthritis (HCC) (Primary Dx); Iridocyclitis; Psoriasis from Last 3 Months Immunizations Immunization Administration Dates Next Due [id number] 07/05/1993, 3,1992,06/04 Diphtheria, Tetanus Toxoids and Acellular [...] Info) Description 08/09/2024 4:00 PM EDT Follow-Up [facility] [address] [place] [phone] Paper Mill Manager: Tru Maloney MD [address] [place] [phone] 08/10/2024 2:15 PM EDT Infusion [facility] [address] [place] [address] Tru Ramirez MD [address] [place] [phone] 09/07/2024 2:30 PM EDT Infusion [facility] [address] [place] [address] Tru Ramirez MD [address] [place] [phone] 11/15/2024 2:20 PM EDT Follow-Up [facility] [address] [place] [phone] Paper Mill Manager: Tru Maloney MD [address] [place] [address] Health Maintenance Due Date Last Done Comments Cervical Cancer Screening 1992 HIV Screening 1992 HPV and Pap Smear 1992 Pap Smear 1992 Pneumococcal Vaccine: Pediat krista (0-5 Years) and At-Risk Patients (6-50 Years) (1 of 2 - PCV) 2011 COVID-19 Vaccine (2 - 2023-2 5 season) 2024 07/26/2021 Influenza Vaccine (#1) 2024 , 03/05/2020, 02/21/2014, Additional history exists Alcohol/Substance Use Screening 05/25/2024 Depression Evaluation 05/25/2024 Social Drivers of Health Elise ual Screening 05/25/2024 DTaP,Tdap,and Td Vaccines (8 - Td or Tdap) 03/05/2030 03/05/2020, 01/22/2009, 09/26/2003, Additional history exists RSV Vaccine (60+ years old a nd patients) (1 - 1-dose 75+ series) 2067 Hepatitis B Vaccines Completed 1992, 1992, 1992 Varicella Vaccines Completed 02/20/2010, 04/14/1996 Hepatitis C Screening Completed 12/30/2022, 017 Procedures * Due to [place] [employer] law, this organization might not be sharing negative HIV tests. Procedure Name Priority Date/Time Associated Diagnosis Comments CBC Routine 05/11/2024 4:59 PM EST Psoriatic arthritis (HCC) C-REACTIVE PROTEIN Routine 05/11/2024 4: 59 PM EST Psoriatic arthritis (HCC) CREATININE Routine 05/11/2024 4:59 PM EST Psoriatic arthritis (HCC) HEPATIC FUNCTION PANEL Routine 4 4:59 PM EST Psoriatic arthritis (HCC) SEDIMENTATION RATE, AUTOMATED Routine 05/11/2024 4:59 PM EST Psoriatic arthritis (HCC) HEPATITIS C ANTIBODY W/REFLEX TO HCV RNA, QUANTITATIVE PCR Routine 12/30/2022 4:53 PM EDT Psoriatic arthritis (HCC) from Last 3 Months or Most Recently Relevant to Health Maintenance Results * Due to [place] [employer] law, this organization might not be sharing negative HIV tests. * (ABNORMAL) Sedimentation Rate (05/11/2024 4:59 PM EST) Sed Rate 31(H) <20 mm/Hr mm/Hr 05/11/2024 6:12 PM EST [facility] Blood Structure of peripheral vein / Unknown Venipuncture / Unknown 05/11/2024 4:59 PM EST 05/11/2024 5:53 PM EST Tru Ramirez MD LAB BLOOD ORDERABLES Final Resul t [facility] [address] [place] [address], * (ABNORMAL) CBC (05/11/2024 4:59 PM EST) WBC 13.3(H) 3.8 - 10.8 10*3/uL 05/11/2024 6:09 PM EST [facility] RBC 4.72 3.80 - 5.10 10*6/uL 05/11/2024 6:09 PM EST [facility] Hemoglobin 11.9 11.7 - 15.5 g/dL 05/11/2024 6:09 PM EST [facility] Hematocrit 38.6 35.0 - 45.0 % 05/11/2024 6:09 PM EST [facility] MCV 81.8 80.0 - 100.0 fL 05/11/2024 6:09 PM EST [facility] MCH 25.2(L) 27.0 - 33.0 pg 05/11/2024 6:09 PM EST [facility] MCHC 30.8(L) 32.0 - 36.0 g/dL 05/11/2024 6:09 PM EST [facility] RDW 12.9 11.0 - 15.0 % 05/11/2024 6:09 PM EST [facility] Platelets 450(H) 140 - 400 10*3/uL 05/11/2024 6:09 PM EST [facility] MPV 9.8 7.5 - 12.5 fL 05/11/2024 6:09 PM EST [facility] Blood Structure of peripheral vein / Unknown Venipuncture / Unknown 05/11/2024 4:59 PM EST 05/11/2024 5:53 PM EST Tru Ramirez MD LAB BLOOD ORDERABLES Final Resul t Performing Organization Address [facility] Co de Phone Number [facility] [address] [place] [phone], * (ABNORMAL) C-Reactive Protein (05/11/2024 4:59 PM EST) C Reactive Protein 10.9(H) <=9.9 mg/L 05/11/2024 6:26 PM EST [facility] Blood Structure of peripheral vein / Unknown Venipuncture / Unknown 05/11/2024 4:59 PM EST 05/11/2024 5:53 PM EST Tru Ramirez MD LAB BLOOD ORDERABLES Final Resul t Performing Organization Address [facility] de Phone Number [facility] [address] [place] [address], [place] * Creatinine (05/11/2024 4:59 PM EST) Creatinine 0.81 0.50 - 1.20 mg/dL 05/11/2024 6:26 PM EST [facility] eGFR >90 >=60 mL/min/1. 73m2 05/11/2024 6:26 PM EST [facility] Comment:The estimated glomer ular [...] MD LAB BLOOD ORDERABLES Final Resul t [facility] [address] [place] [address], [place] * (ABNORMAL) Hepatic Function Panel (05/11/2024 4:59 PM EST) Total Protein 7.6 6.0 - 8.0 g/dL 05/11/2024 6:29 PM EST [facility] Albumin 4.3 3.5 - 5.2 g/dL 05/11/2024 6:29 PM EST [facility] Globulin, Total 3.3 2.1 - 4.2 g/dL 05/11/2024 6:29 PM EST [facility] Bilirubin, Total 0.2 0.2 - 1.2 mg/dL 05/11/2024 6:29 PM EST [facility] Bilirubin, Direct <0.1 <=0.4 mg/dL 05/11/2024 6:29 PM EST [facility] Alkaline Phosphatase 130(H) 35 - 129 U/L 05/11/2024 6:29 PM EST [facility] AST 46(H) 10 - 40 U/L 05/11/2024 6:29 PM EST [facility] ALT 45(H) 10 - 40 U/L 05/11/2024 6:29 PM EST [facility] Bilirubin, Indirect 05/11/2024 6:29 PM EST [facility] Comment:Unable to calculate A/G Ratio 1.3(L) 1.5 - 3.0 05/11/2024 6:29 PM EST [facility] Blood Structure of peripheral vein / Unknown Venipuncture / Unknown 05/11/2024 4:59 PM EST 05/11/2024 5:53 PM EST Tru Ramirez MD LAB BLOOD ORDERABLES Final Resul t [facility] [address] [place] [address], * Hepatitis C Antibody w/Reflex to HCV RNA, Quantitative PCR (12/30/2022 4:53 PM EDT) Hepatitis C Antibody NON-REACT TATO NON-REACT TATO 12/31/2022 6:56 AM EDT [facility] Comment: HCV antibody was non-reactive. There is no laboratory evidence of HCV infection. In most cases, no further action is required. However, if recent HCV exposure is suspected, a test for HCV RNA (test code 91707) is suggested. For additional information please refer to http://[employer]/faq/MSH25k3 (This link is being provided for informational/ educational purposes only.) Blood Structure of peripheral vein / Unknown Venipuncture / Unknown 12/30/2022 4:53 PM EDT 12/30/2022 6:09 PM EDT Narrative [facility] - 12/31/2022 6:56 AM EDT [facility] Received Date: Tru Ramirez MD LAB BLOOD ORDERABLES Final Resul t Performing Organization Address City/[facility]/ZIP Co de Phone Number [facility] [address], [place] [address], [place] [phone] [facility] [address], [place] [address], [place] [phone] from Last 3 Months or Most Recently Relevant to Health Maintenance Insurance [facility] PPO/EPO Care Teams Broiler Manager Relationship Specialty Start Date End Date Deb Patterson [facility] [place] [address] PCP - General Family Medicine 10/01/22
== END 2024-07-26 16:20 | disposition home or self-care (01) ==
PROVIDERS: PCP Family Medicine; Visit Provider Family Medicine
DX: R41.840 Attention and concentration deficit (principal); F41.8 Other specified anxiety disorders; L40.50 Arthropathic psoriasis, unspecified; H20.9 Unspecified iridocyclitis; Z11.3 Encounter for screening for infections with a predominantly sexual mode of transmission; J45.909 Unspecified asthma, uncomplicated

== ENCOUNTER → 2024-07-26 15:03 | Outpatient (BNVA) | payer BC, SELFPAY | PROVIDERS: PCP Family Medicine; Visit Provider Family Medicine | DX: R41.840 Attention and concentration deficit (principal); F41.8 Other specified anxiety disorders; L40.50 Arthropathic psoriasis, unspecified; H20.9 Unspecified iridocyclitis | CPT/HCPCS: 96127 ==